=== PATIENT | male | born 1935 | race African-American/Black ===

== ENCOUNTER 2017-06-16 18:29 | Inpatient (IN) | payer OTHER ==
--- NOTE | 2017-06-16 19:13 | EDPHY ---
H & P Time Seen by Provider: 06/16/17 19:13 HPI/ROS: CHIEF COMPLAINT: Hip pain HISTORY OF PRESENT ILLNESS: The patient is an 82-year-old male with history of Parkinson's disease, who presents with increased weakness after a fall 3 days ago. The patient fell onto his buttocks when trying to walk without his walker. The patient has not been able to get up or roll over in bed since the fall. He told his his pain originates in the abdomen and radiates down to his legs. The patient has been lying in bed for the past 3 days. He usually ambulates with a walker and uses his wheelchair when he is more fatigued. The patient has had 5 falls since April. The patient recently had cold-like symptoms and has been more weak than usual. The patient has not been eating as much as usual. No vomiting or diarrhea. REVIEW OF SYSTEMS: A comprehensive 10 point review of systems is otherwise negative aside from elements mentioned in the history of present illness. 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 Smoking Status: Former smoker Physical Exam: General Appearance: Alert, pleasant, patient is diffusely weak, but able to move and stand up with assistance Eyes: Pupils equal and round, no conjunctival pallor ENT, Mouth: Mucous membranes moist Neck: Normal inspection Respiratory: Lungs are clear to auscultation Cardiovascular: Regular rate and rhythm Gastrointestinal: Abdomen is soft and non-tender Neurological: alert, motor-generalized weakness, gait not assessed Skin: Warm and dry, no rash Back: Normal inspection, no tenderness Extremities: Bilateral hip pain with hip extension, bilateral hip rotation without pain, bilateral knee range of motion without pain Psychiatric: Flat affect Constitutional: Initial Vital Signs Temperature (C) 37.0 C 06/16/17 18:33 Heart Rate 77 06/16/17 18:33 Respiratory Rate 16 06/16/17 18:33 Blood Pressure 124/107 H 06/16/17 18:33 O2 Sat (%) 93 06/16/17 18:33 O2 Delivery Mode Room Air Allergies/Adverse Reactions: No Known Allergies Allergy (Verified 01/27/13 17:25) Home Medications: Medication Instructions Recorded Acetaminophen [Tylenol ES 500 mg 1,000 mg PO HS 06/16/17 (*)] Albuterol Sulfate [Ventolin Hfa] 1 puffs IH BID 06/16/17 Carbidopa/Levodopa 25/100Mg 3 tab PO TID 06/16/17 [Sinemet 25/100 MG (*)] Fluticasone Hfa 110 Mcg [Flovent 1 puffs IH BID 06/16/17 110 MCG Hfa MDI (*)] Loratadine [Claritin 10 mg] 10 mg PO DAILY PRN 06/16/17 Timolol 0.25% [TIMOPTIC 0.25% (*)] 1 drops EACHEYE DAILY 06/16/17 Torsemide [Demadex] 10 mg PO DAILY 06/16/17 Medical Decision Making - Diagnostics Imaging: Discussed imaging studies w/ scow captain Radiologist, I viewed and interpreted images myself ED Course/Re-evaluation: The patient has a history of Parkinson's disease, dementia, and COPD. He presents to the emergency department with generalized weakness and multiple falls in the past 4-5 weeks. He is unable to localize the area of pain. In the emergency department he was able to stand up with assistance from his family. While standing he complains of pain in both of his hips. Passive hip ROM is not painful. I ordered x-ray imaging of the hips, knees, and lumbar spine. The patient has history of COPD with recent cough and chest cold, I ordered chest x-ray to rule out pneumonia. This is the patient's fifth fall since April. 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 Due to history of Parkinson's , dementia, and recent falls, I will admit the patient. Chest x-ray reveals no evidence of pneumonia. 2020: I spoke to the hospitalist, Dr. Mora, who accepts patient for admission. X-ray imaging by my read shows: Knee x-rays: right total knee replacement, no acute injury. Hip x-rays: DJD, negative for fracture. Chest x-ray: No pneumonia. Lumbar spine x-ray: DJD, no fracture. Please see imaging section for the full radiologist reports. Differential Diagnosis: Differential diagnosis includes though it is not limited to pneumonia, fracture , electrolyte abnormality, hypoglycemia, UTI. - Data Points Laboratory Results: Laboratory Results 06/16/17 19:55 06/16/17 19:55 Medications Given: Acetaminophen (Tylenol) 1,000 mg PO HS [facility]U Stop: 12/13/17 23:44 Last Admin: 06/17/17 21:01 Dose: 1,000 mg Aspirin (Aspirin) 325 mg PO DAILY [facility] Stop: 12/14/17 15:44 Last Admin: 06/18/17 09:43 Dose: 325 mg Enoxaparin Sodium (Lovenox) 40 mg SC DAILY [facility]U Stop: 12/14/17 08:59 Last Admin: 06/18/17 09:44 Dose: 40 mg Fluticasone Propionate (Flovent Hfa) 1 puffs IH BID [facility]U Stop: 12/14/17 08:59 Last Admin: 06/18/17 09:59 Dose: 1 puffs Lidocaine (Lidocaine 2% Jelly) 1 sydney TP ONCE PRN PRN Reason: debridement Stop: 12/15/17 08:59 Last Admin: 06/18/17 10:39 Dose: 1 sy[place]ney Timolol Maleate (Timoptic 0.25%) 1 drops EACHEYE DAILY [facility]U Stop: 12/14/17 08:59 Last Admin: 06/18/17 09:50 Dose: 1 drop Discontinued Medications Albuterol (Ventolin Hfa Inhaler) 1 puffs IH BID [facility]U Stop: 12/14/17 09:59 Last Admin: 06/17/17 10:05 Dose: 1 puffs Albuterol/Ipratropium (Duoneb) 3 ml IH QID [facility]U Stop: 12/14/17 11:59 Last Admin: 06/18/17 10:15 Dose: 3 ml Carbidopa/Levodopa (Sinemet) 3 tab PO TID [facility]U Stop: 12/14/17 08:59 Last Admin: 06/18/17 09:30 Dose: 3 tab Diltiazem HCl (Cardizem Immediate Release) 30 mg PO Q6HRS [facility] Stop: 12/14/17 15:44 Last Admin: 06/18/17 13:10 Dose: Not Given Sodium Chloride (Ns) 1,000 mls @ 75 mls/hr IV CONT RAMU Stop: 12/14/17 00:29 Last Admin: 06/17/17 14:56 Dose: 1,000 mls Departure - Departure Disposition: [facility] Acute Clinical Impression: Weakness, Multiple falls Failure to thrive Qualifiers: Failure to thrive age range: in adult Qualified Code(s): R62.7 - Adult failure to thrive Condition: Fair Report Scribed for: Medina Medel Report Scribed by: Yumiko Up Date of Report: 06/16/17 Time of Report: 19:15 Physician Review and Approval Statement: 06/16/17 19:15 Portions of this note were transcribed by a medical billing representative. I personally performed the history, physical exam, and medical decision-making; and confirmed the accuracy of the information in the transcribed note.
[2017-06-16 20:05] LABS: % IMMATURE GRANULYOCYTES 0.3 % (0.0-1.1); ABSOLUTE IMMATURE GRANULOCYTES 0.03 10^3/uL (0.00-0.10); ADD DIFF? NO; ADD MORPH? NO; ADD SCAN? NO; ATYPICAL LYMPHOCYTE FLAG 30 (0-99); FRAGMENT RBC FLAG 0 (0-99); HEMATOCRIT 45.9 % (40.0-51.0); HEMOGLOBIN 14.7 g/dL (13.7-17.5); LEFT SHIFT FLG 0 (0-99); LIPEMIA HEMOLYSIS FLAG 80 (0-99); MEAN CELL HEMOGLOBIN 29.2 pg (27.9-34.1); MEAN CELL VOLUME 91.1 fL (81.5-99.8); MEAN PLATELET VOLUME 12.9 fL (8.7-11.7); PLATELET CLUMPS FLAG 0 (0-99); PLATELET COUNT 232 10^3/uL (150-400); RED BLOOD CELL COUNT 5.04 10^6/uL (4.40-6.38)
[2017-06-16 20:15] LABS: ANION GAP 11 mEq/L (8-16); CALCIUM 9.1 mg/dL (8.5-10.4); CARBON DIOXIDE 22 mEq/l (22-31); CHLORIDE 110 mEq/L (97-110); CREATININE 0.8 mg/dL (0.7-1.3); GLOMERULAR FILTRATION RATE > 60; GLUCOSE 106 mg/dL (70-100); POTASSIUM 4.4 mEq/L (3.5-5.2); SODIUM 143 mEq/L (134-144)
[2017-06-16] MEDS: ACETAMINOPHEN 500 MG TAB PO SCH (23:49)
[2017-06-17] MEDS ORDERED: ACETAMINOPHEN 325 MG TAB PO PRN (00:19)
[2017-06-17] MEDS ORDERED: ONDANSETRON DISINTEGRATING 4 MG TAB PO PRN (00:19)
[2017-06-17] MEDS ORDERED: NS 1,000 ML IV SCH (00:30)
--- NOTE | 2017-06-17 01:40 | GHP ---
[f rep st] HISTORY AND PHYSICAL DATE OF ADMISSION: 06/16/2017 CHIEF COMPLAINT: Falls, unable to get out of bed. HISTORY OF PRESENT ILLNESS: This is an 82-year-old man with COPD and Parkinson's, who presents after a fall 3 days ago. Since then, he had been complaining about pain in his legs and abdomen. He has not really gotten out of bed since he fell 3 days ago. He has been drinking minimal water. He is no rmally on torsemide for what sounds like right-sided heart failure from his COPD; however, his h as been holding that. At baseline, he spends most of his time in bed. He sleeps about 18-20 hours a day, can walk very short distances with a walker. Otherwise, is in a wheelchair. He has [facility]. PAST MEDICAL/SURGICAL HISTORY: 1. Parkinson's. 2. Dementia. 3. COPD. 4. Questionable atrial fibrillation. 5. Pressure ulcer. 6. Right TKA. MEDICATIONS: Please see medication reconciliation. ALLERGIES: None. FAMILY HISTORY: Reviewed and noncontributory. SOCIAL HISTORY: He lives at home with his and has significant family support. REVIEW OF SYSTEMS: A 10-point review of systems is conducted and is negative, except per HPI. PHYSICAL EXAM: Blood pressure 110/92, heart rate 96, respiration rate 16, saturating 96% on room air , temperature is 37. In general, the patient is a pleasant man who is lying on bed. He appears comf ortable, in no acute distress. HEENT shows him to be normocephalic, atraumatic. Cardiovascular exam shows a regular rate and rhythm. He has distant S1 and S2. I do not appreciate any murmurs, rubs, or gallops. Pulmonary exam shows him also to have distant breath sounds. He is not in any respirato ry distress and he is otherwise clear. Abdominal exam is soft, nontender, nondistended. Skin exam s hows him to have decreased skin turgor. exam shows no Ferraro. Neurologic exam shows him to be dk ewhat confused. He has rigidity throughout. He has a mild resting tremor. Psychiatric exam shows n ormal mood and affect. LABS: Basic metabolic panel is normal. CBC is normal. DATA: 1. I discussed this with Dr. Mora. 2. I reviewed his chart. 3. I reviewed his hip, knee x-ray, lumbar spine x-ray. These are all negative for fractures. 4. I reviewed his chest x-ray. This shows some atelectasis and trace effusions. IMPRESSION AND PLAN: 1. Multiple recent falls: He has had about 5 since April. He is quite unstable, largely due to Pa zachinson's and deconditioning. We will have PT and OT see him, as well as Case Management. 2. Dehydration: Probably contributing to some of the worsening weakness since his fall 3 days ago. We will give him cautious hydration and hold his torsemide. Watch for edema. 3. Pressure ulcer on his sacrum: We will have a Wound Care consult. 4. Parkinson's: We will continue his Sinemet. 5. Chronic obstructive pulmonary disease: He is currently on room air. We will continue his inhale rs. CODE STATUS: He is do not resuscitate. VTE RISK: High. I will give him Lovenox. /[id number]/MODL
[2017-06-17 04:48] LABS: % IMMATURE GRANULYOCYTES 0.3 % (0.0-1.1); ABSOLUTE IMMATURE GRANULOCYTES 0.02 10^3/uL (0.00-0.10); ADD DIFF? NO; ADD MORPH? NO; ADD SCAN? NO; ATYPICAL LYMPHOCYTE FLAG 30 (0-99); FRAGMENT RBC FLAG 0 (0-99); HEMATOCRIT 42.3 % (40.0-51.0); HEMOGLOBIN 13.5 g/dL (13.7-17.5); LEFT SHIFT FLG 0 (0-99); LIPEMIA HEMOLYSIS FLAG 80 (0-99); MEAN CELL HEMOGLOBIN 29.3 pg (27.9-34.1); MEAN CELL HEMOGLOBIN CONCENTR. 31.9 g/dL (32.4-36.7); MEAN PLATELET VOLUME 12.9 fL (8.7-11.7); PLATELET CLUMPS FLAG 20 (0-99); PLATELET COUNT 203 10^3/uL (150-400); RED CELL DISTRIBUTION WIDTH 14.2 % (11.5-15.2)
[2017-06-17 04:54] LABS: INR 1.27 (0.83-1.16); PROTIME(PATIENT) 15.9 SEC (12.0-15.0)
[2017-06-17 05:00] LABS: ALANINE AMINOTRANSFERASE 33 IU/L (21-72); ALBUMIN 2.9 g/dL (3.5-5.0); ALKALINE PHOSPHATASE 104 IU/L (38-126); ANION GAP 9 mEq/L (8-16); ASPARTATE AMINOTRANSFERASE 76 IU/L (17-59); BILIRUBIN,TOTAL 0.6 mg/dL (0.1-1.4); BILIRUBIN-CONJUGATED 0.3 mg/dL (0.0-0.5); BILIRUBIN-UNCONJUGATED 0.3 mg/dL (0.0-1.1); CALCIUM 8.6 mg/dL (8.5-10.4); CARBON DIOXIDE 23 mEq/l (22-31); CHLORIDE 111 mEq/L (97-110); CREATININE 0.7 mg/dL (0.7-1.3); GLOMERULAR FILTRATION RATE > 60; GLUCOSE 85 mg/dL (70-100); MAGNESIUM 2.1 mg/dL (1.6-2.3); SODIUM 143 mEq/L (134-144)
[2017-06-17] MEDS ORDERED: TORSEMIDE 10 MG TAB PO SCH (09:00)
[2017-06-17] MEDS ORDERED: ALBUTEROL 200 PUFFS/18 GM MDI IH SCH (10:00)
[2017-06-17] MEDS: FLUTICASONE HFA 110 MCG MDI IH SCH ×2 (10:05→21:02)
[2017-06-17] MEDS: CARBIDOPA/LEVODOPA 25 MG/100 MG TAB PO SCH ×3 (10:30→18:38)
--- NOTE | 2017-06-17 11:52 | HOSPPROG ---
Hospitalist Progress Note Assessment/Plan: Increase falls in setting of Parkinson's - PT/OT evals. Cont sinemet. Neurology consult requested. Volume depletion - cont IVF's Tachycardia - ?h/o a fib, check EKG COPD - change to QID duonebs Pressure ulcer sacrum - wound care following, planning for debridement tomorrow -topical lidocaine prior to debridement DNR Dispo - cont inpt, family goals are to bring him home Objective: Vital Signs Temp Pulse Resp BP Pulse Ox 36.7 C 102 H 18 113/73 93 06/17/17 05:08 06/17/17 10:05 06/17/17 10:05 06/17/17 05:08 06/17/17 10:05 Laboratory Results 06/17/17 04:34 06/17/17 04:34 06/16/17 06/17/17 06/18/17 05:59 05:59 05:59 Intake Total 150 393 Balance 150 393 PT 15.9 SEC (12.0-15.0) H 06/17/17 04:34 INR 1.27 (0.83-1.16) H 06/17/17 04:34 ICD10 Worksheet Patient Problems: Problems Problem Status Onset Failure to thrive Acute Multiple falls Acute Weakness Acute
[2017-06-17] MEDS: IPRATROPIUM/ALBUTEROL 3 ML DEYVIAL IH SCH ×3 (12:00→21:01)
--- NOTE | 2017-06-17 12:54 | WOCRNPDOC ---
EDI Advanced Assessment Note - Skin Integrity Problem, Advanced Assess Right Sacrum Pressure Injury Dressing Type: Allevyn Life Dressing Description: Clean/Dry, Intact Exudate Amount: Minimal Exudate Color: Reddish/Yellow Exudate Characteristic(s): Serosanguinous Integumentary Issue Intervention: Dressing Changed, Hydrogel Applied Taryn Wound Tissue: Blanching, Erythema, Thin Wound Bed Color: Bracey, Yellow Wound Bed Constitution: Smooth Tissue (30%), Adhered Slough (70%) Site Measurement - Head-to-Toe Length X Width X Depth (cm): 1nlm4ekp9.3cm Pressure Injury Stage: Unstageable Pressure Injury Present on Admit: Yes Skin Integrity Problem Comment: Taryn wound skin is extensively scarred from multiple previous pressure injuries. The most medial portion of the wound is noted to have yellow adhered slough. The lateral portion of the wound is healing and currently partial thickness. Wound cleaned with NS and gauze. Wound gel applied to wound bed, taryn wound prepped with skin prep and Allevyn coccyx dressing applied. Findings and plan discussed with patient's and son who were both at the bedside. IZABEL Hunt also at bedside. Bilateral Heel Dressing Type: Open to Air Taryn Wound Tissue: Blanching, Xerotic Pressure Injury Present on Admit: No Skin Integrity Problem Comment: No pressure injury present. Will offload with boots to prevent further injury. Patient and family advised to offload bilateral heels and to moisturize BID. Se SMITH aware. Left Medial Buttock Pressure Injury Dressing Type: Allevyn Life Dressing Description: Clean/Dry, Intact Exudate Amount: None Integumentary Issue Intervention: Dressing Changed, Hydrogel Applied Taryn Wound Tissue: Blanching Wound Bed Color: Bracey Site Measurement - Head-to-Toe Length X Width X Depth (cm): 1.5cmx1.3cmx0.1cm Pressure Injury Stage: Stage 2 Pressure Injury Present on Admit: Yes Skin Integrity Problem Comment: This patient has a history of pressure injury in this same area. Skin is blanching and largely epithelialized but with small partial thickness opening. Wound cleaned with NS and gauze. Small amount of hydrogel applied to wound bed. Taryn wound skin prepped with skin prep and covered with Allevyn Life dressing. Patient and family educated to offload area to promote healing. Left Lateral Buttock Pressure Injury Dressing Type: Allevyn Life Dressing Description: Clean/Dry Exudate Amount: None Integumentary Issue Intervention: Dressing Changed, Hydrogel Applied Taryn Wound Tissue: Blanching Wound Bed Color: Bracey Site Measurement - Head-to-Toe Length X Width X Depth (cm): 3.2cmx2.2cmx0.1cm Pressure Injury Stage: Stage 2 Pressure Injury Present on Admit: Yes Skin Integrity Problem Comment: This patient has a history of pressure injury in this same area. Skin is blanching and largely epithelialized but with small partial thickness opening. Wound cleaned with NS and gauze. Small amount of hydrogel applied to wound bed. Taryn wound skin prepped with skin prep and covered with Allevyn Life dressing. Patient and family educated to offload area to promote healing.
--- NOTE | 2017-06-17 14:40 | CPEKG ---
Heart Rate: 144 RR Interval: 417 QRSD Interval: 78 QT Interval: 300 QTC Interval: 465 QRS Boswell: 91 T Wave Boswell: 93 EKG Severity - ABNORMAL ECG - EKG Impression: ATRIAL FIBRILLATION, V-RATE 95-181 EKG Impression: MULTIFORM VENTRICULAR PREMATURE COMPLEXES EKG Impression: RIGHT AXIS DEVIATION EKG Impression: NONSPECIFIC T ABNORMALITIES, LATERAL LEADS Electronically Signed By: Isabell Tovar 17-Jun-2017 16:30:47
[2017-06-17] MEDS: TIMOLOL 0.25% 5 ML OPHT.BTL EACHEYE SCH (14:50)
[2017-06-17] MEDS: ENOXAPARIN 40 MG/0.4 ML SYR SC SCH (15:03)
--- NOTE | 2017-06-17 16:01 | HOSPPROG ---
Hospitalist Progress Note Assessment/Plan: Increased falls in setting of Parkinson's - PT/OT evals. Cont sinemet. Neurology consult requested. A fib with RVR - pt has h/o of A fib, but not on AV danny blockers or anti- coagulation. Poor rate control here. Chads-vasc 2 based on age. May not be a good candidate for anti-coagulation given recurrent falls. -start po dilt -daily ASA for now -need to address anti-coagulation with family Volume depletion - cont IVF's for now COPD - Stable, no e/o acute exacerbation -change to QID duonebs Pressure ulcer sacrum - wound care following, planning for debridement tomorrow -topical lidocaine prior to debridement DNR Dispo - cont inpt, family goals are to bring him home. is primary decision maker. Subjective: Pt eating breakfast, not very communicative. Denies pain. No cough , CP or SOB. No fevers. Objective: Vital Signs Temp Pulse Resp BP Pulse Ox 36.4 C 121 H 18 105/75 92 06/17/17 13:53 06/17/17 13:53 06/17/17 13:53 06/17/17 13:53 06/17/17 13:53 Laboratory Results 06/17/17 04:34 06/17/17 04:34 06/16/17 06/17/17 06/18/17 05:59 05:59 05:59 Intake Total 150 393 Balance 150 393 PT 15.9 SEC (12.0-15.0) H 06/17/17 04:34 INR 1.27 (0.83-1.16) H 06/17/17 04:34 - Physical Exam Constitutional: no apparent distress Eyes: PERRL Ears, Nose, Mouth, Throat: moist mucous membranes Cardiovascular: irregularly irregular, tachycardia Respiratory: no respiratory distress, clear to auscultation Gastrointestinal: normoactive bowel sounds, soft, non-tender abdomen Skin: warm Musculoskeletal: other (LE rigidity) Psychiatric: other (masked facies) ICD10 Worksheet Patient Problems: Problems Problem Status Onset Failure to thrive Acute Multiple falls Acute Weakness Acute
[2017-06-17] MEDS: DILTIAZEM 30 MG TAB PO SCH ×3 (16:12→23:52)
[2017-06-17] MEDS: ASPIRIN 325 MG TAB PO SCH (16:30)
[2017-06-17] MEDS: ACETAMINOPHEN 500 MG TAB PO SCH (21:01)
[2017-06-18] MEDS: IPRATROPIUM/ALBUTEROL 3 ML DEYVIAL IH SCH ×2 (04:54→10:15)
[2017-06-18] MEDS: DILTIAZEM 30 MG TAB PO SCH ×2 (06:56→13:10)
[2017-06-18] MEDS ORDERED: LIDOCAINE 2% JELLY 5 ML TUBE TP PRN (09:00)
[2017-06-18] MEDS: CARBIDOPA/LEVODOPA 25 MG/100 MG TAB PO SCH ×2 (09:30→17:49)
[2017-06-18] MEDS: ASPIRIN 325 MG TAB PO SCH (09:43)
[2017-06-18] MEDS: ENOXAPARIN 40 MG/0.4 ML SYR SC SCH (09:44)
[2017-06-18] MEDS: TIMOLOL 0.25% 5 ML OPHT.BTL EACHEYE SCH (09:50)
[2017-06-18] MEDS: FLUTICASONE HFA 110 MCG MDI IH SCH ×2 (09:59→20:55)
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
--- NOTE | 2017-06-18 11:14 | WOCRNPDOC ---
WOCRN Advanced Assessment Note - Skin Integrity Problem, Advanced Assess Right Sacrum Pressure Injury Dressing Type: Allevyn Life Dressing Description: Clean/Dry, Intact Exudate Amount: Scant Exudate Characteristic(s): Serosanguinous Integumentary Issue Intervention: Dressing Changed Taryn Wound Tissue: Macerated, Scarred Taryn Wound Swelling: None Wound Bed Color: Red, Yellow Wound Bed Constitution: Granulation Tissue (10%), Adhered Slough (90%) Wound Edges: Not Attached, Scarred Pressure Injury Stage: Stage 3 Pressure Injury Present on Admit: Yes Conservative Sharp Bedside Debridement Performed: Yes Consent Signed for Debridement: Yes Timeout Performed per Protocol: Yes Instrument Used for Debridement: Currette Measurements Before Debridement: same as yesterday Measurements After Debridement: same as prior to debridement Estimated Blood Loss from Debridement: 0 Conservative Sharp Bedside Debridement Outcome: Down to Viable Tissue, Hemostasis Achieved Conservative Sharp Bedside Debridement Comment: Area premedicated with 2% lidocaine for 5 min. 20% thin layer of slough remaining post debridement. Patient's son and were both in room for care.
[2017-06-18] MEDS ORDERED: IPRATROPIUM/ALBUTEROL 3 ML DEYVIAL IH PRN (11:39)
--- NOTE | 2017-06-18 11:44 | HOSPPROG ---
Hospitalist Progress Note Assessment/Plan: * Acute weakness - per family was ambulatory 1 week ago -PT/OT -full medical eval to see if cause of acute decline can be found -may have been recent viral illnes which precipitated fall * End stage Parkinson's -neurology recommends hospice care -they are not convinced he will not recover given rapidity of decline -they wish to continue Sinemet at this time -check swallow eval * Rapid afib -rate control better on PO diltiazem -ASA for CVA prevention given history of falls -family requests cardiology consultation * Metabolic encephalopathy - w/u as above * Dementia - advanced * Sacral decub - POA -wound care * COPD with right heart failure -holding torsemide due to poor PO Will consult palliative care to assist with this difficult case Refusing SNF - they plan to take him home with increased assistance to from son/dtr in law Son is planning on selling his home and moving in with them so he will be more present They plan to private pay PT/OT for increase chances of success at rehab Subjective: No change since admission Objective: Vital Signs Temp Pulse Resp BP Pulse Ox 36.7 C 99 17 112/78 92 06/18/17 09:00 06/18/17 09:00 06/18/17 09:00 06/18/17 09:00 06/18/17 09:00 Laboratory Results 06/17/17 04:34 06/17/17 04:34 06/17/17 06/18/17 06/19/17 05:59 05:59 05:59 Intake Total 150 1543 400 Output Total 75 Balance 150 1543 325 PT 15.9 SEC (12.0-15.0) H 06/17/17 04:34 INR 1.27 (0.83-1.16) H 06/17/17 04:34 d/w Tiff Sahu regarding cardiology consultation EKG viewed, my personal interpretation is - rapid afib CXR - possible increased CHF - Physical Exam Constitutional: no apparent distress, appears nourished, not in pain Cardiovascular: no murmur, rub, or gallop, irregularly irregular, No JVD, No edema Respiratory: no respiratory distress, no rales or rhonchi, clear to auscultation Gastrointestinal: normoactive bowel sounds, soft, non-tender abdomen, no palpable masses Skin: no rashes or abrasions, no fluctuance, no induration Neurologic: No AAOx3 Psychiatric: encephalopathic, poor insight, poor judgement, poor memory, No interacting appropriately ICD10 Worksheet Patient Problems: Problems Problem Status Onset Failure to thrive Acute Multiple falls Acute Weakness Acute
--- NOTE | 2017-06-18 15:28 | PDPCPN ---
Palliative Care Progress Note Assessment/Plan: Referring provider: Dr Colon Reason for consult: Complex medical decision making Symptom control HPI: Jluis Etienne is a 82 yo male with Parkinson, COPD, a fib, pressure ulcers, and dementia admitted to the hospital after a fall with poor po intake and increase in weakness. Treated with IV fluids and work up for acute issues negative so far. Hospitalization complicated by a fib. Improvement in functional status from baseline and was up able to walk with x2 person assist and walker today. Appetite is better. Palliative care consulted for complex medical decision making. Met with Celestina and son Cecil at the bedside this afternoon. Well known to me from outpatient visits. Jluis has been declining over the past 18 months and is mostly home bound except for occasional medical visits. He has been declining physically as well as mentally. He was dx with parkinson's about 1 year ago and had slight improvement in function just afterwards. Per outpt chart review in February he was essentially wheelchair bound with decreasing appetite and increase in falls. He has had HHC in the past with complications of care due to his dementia and not wanting anyone but his to assist him. Per the family he is about 40% back to his most recent baseline. We spoke about how he will likely continue to have declines in baseline functional status due to his multiple chronic medical conditions. Celestina would like more support at home as it has been getting harder for him to transfer and go to appointments outside of the home. His son who lives close by is going to be moving in with his parents to provide additional support and care. His family believes Jluis is not ready for hospice care and believes he has years left to live. We discussed the difference of hospice vs palliative care and when hospice may be appropriate. Celestina understands the continue decline and will have to assess for his recovery and ongoing care in the future. Assessment: Physical: - Pain: none, monitor after fall -tylenol PRN - weakness: -PT/OT - turn and reposition Emotional/psychological: Confusion: at times - maintain normal routine Advanced Care Planning: Is patient decisional?: no Code Status: DNR POA: Celestina is MDPOA. Plan: Home when medically ready with HHC (rn, PT, OT) and [facility] outpt palliative care. Subjective: when can i leave Objective: Social History: to [place]. 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 1 son local and involved. Medication list reviewed ROS: General: fatigue, weakness, weight loss ENT: negative Resp: negative GI: negative : negative MS: negative Skin: sacral ulcer Neuro: negative Psych: hallucinations Functional assessment: PPS: 40% Functional status: dependent on ADLs, IADLs Vital Signs Temp Pulse Resp BP Pulse Ox 36.4 C 88 15 90/61 L 95 06/18/17 12:09 06/18/17 12:09 06/18/17 12:09 06/18/17 12:09 06/18/17 12:09 Laboratory Results 06/17/17 04:34 06/17/17 04:34 06/17/17 06/18/17 06/19/17 05:59 05:59 05:59 Intake Total 150 1543 400 Output Total 75 Balance 150 1543 325 PT 15.9 SEC (12.0-15.0) H 06/17/17 04:34 INR 1.27 (0.83-1.16) H 06/17/17 04:34 Physical Exam - Physical Exam General Appearance: alert, no apparent distress Respiratory: No respiratory distress, No accessory muscle use Skin: normal color, warm/dry Extremities: pedal edema (trace) Neuro/Psych: alert, disoriented to place, disoriented to time ICD10 Worksheet Patient Problems: Problems Problem Status Onset Failure to thrive Acute Multiple falls Acute Palliative care encounter Acute Weakness Acute - ICD10 Problem Qualifiers (1) Palliative care encounter
--- NOTE | 2017-06-18 16:07 | ASMTCMCOM ---
CM Note CM Note Notes: Pt admitted for Parkinson's and multiple falls in the home. Pt had a palliative care consult and decision made to have [facility] in the home. 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 Met with pt's who chose [facility]. [facility] alerted. C/M to follow. Date Signed: 06/18/2017 04:07 PM Electronically Signed By:Phyllis Arias LCSW
--- NOTE | 2017-06-18 16:19 | GCON ---
[f rep st] CONSULTATION CARDIOLOGY CONSULTATION CHIEF COMPLAINT: Poor eating and not having taken in many fluids, and having had a fall before he came to the hospital. He has a history of taking strong diuretics and his says that he is in bed most of the day, sleeping 18-20 hours a day. Does not go very far with his walker. He is being seen by Wound Care. He has a dementia from Parkinson disease. He has COPD. He has a history of pressure ulcers. He is a very pleasant gentleman who has no chest pain, jaw pain, or arm pain. He does not complain of shortness of breath. He is not having palpitations. CARDIAC RISK FACTORS: Negative for hypertension, hyperlipidemia, diabetes mellitus, known myocardial infarction or coronary disease. He does not smoke. He does not have hyperuricemia. ALLERGIES: None. FAMILY HISTORY: Negative for premature coronary disease. SOCIAL HISTORY: He was born in [place], [place]. At 16 years old he left [place] and went to [place] [employer], was there for 2 years, and then went to work for [employer]. 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 In 1951, he came to [place], [place] and has been here ever since. He did meet his in [place] when he was working at the [employer] for [employer], and she was working for the [employer]. She and he are both retired at this point in time. He does not smoke. He does not drink significant amounts of alcohol. REVIEW OF SYSTEMS: A 12-point review of systems was negative except as noted above and in the record. Positive for Parkinson's. Positive for dementia. Positive for weakness. Positive for a right TKA. PHYSICAL EXAM: VITAL SIGNS: Today, the blood pressure is 105/70, heart rate is 85 and irregular, respiratory rate 12, temperature afebrile. NECK: Supple. CARDIOVASCULAR: S1 and S2. Systolic murmur at the left sternal border. An irregularly irregular heartbeat. PULMONARY: Decreased breath sounds at the bases. ABDOMEN: Soft, nontender, without masses. EXTREMITIES: Without edema. NEUROLOGIC: He is confused and not answering appropriately. ASSESSMENT AND PLAN: 1. Atrial fibrillation. 2. Multiple falls. 3. Trauma. 4. Parkinson disease. 5. Weakness. 6. Dementia. 7. Chronic obstructive pulmonary disease. He has been seen by the wound care service on a regular basis while he has been here. His chest x-ray showed bibasilar atelectasis and trace bilateral pleural effusions. No discernible rib fracture or acute compression abnormality. He is being followed by the neurology service and the hospitalist. The patient is seen by the neurologic service for his Parkinson disease. Atrial fibrillation. At this point in time, the patient is not a good candidate for full anticoagulation. He is falling. He is totally unsteady. He is unreliable, and I do not think full anticoagulation would be appropriate for him. I would give him aspirin 81 mg a day to help cut down somewhat on the risk of stroke with his atrial fibrillation. He is being followed by Dr. Kim , and they are very attached to this physician general practice. For now, I would continue his current medications and watch and see how he does. He came in dehydrated from not eating much and from his trauma, and having little interest in food or liquid. I have talked to his family about staying hydrated extensively, and discussed what that means and the options for them. I spent over an hour with the family on long-term care options, on end of life care options, and going over their questions. They would like very much to follow with Dr. Kim, and we will make that possible for them to do. I talked to the hospitalist about this, and will just continue with the current medications which she has picked, which are doing a very good job for him. His heart rate is coming down, and he is very much at baseline, and I do not think we need to do a new big workup on his care. Thank you very much for asking us to see him. /[id number]/MODL MTDD
[2017-06-18] MEDS ORDERED: DILTIAZEM 30 MG TAB PO ONE (18:30)
[2017-06-18] MEDS: DILTIAZEM CD 120 MG CAP PO SCH (18:41)
[2017-06-18] MEDS: ACETAMINOPHEN 500 MG TAB PO SCH (20:22)
[2017-06-18] MEDS ORDERED: CETIRIZINE 10 MG TAB PO PRN (23:58)
[2017-06-19 05:44] LABS: % IMMATURE GRANULYOCYTES 0.5 % (0.0-1.1); ABSOLUTE IMMATURE GRANULOCYTES 0.03 10^3/uL (0.00-0.10); ADD DIFF? NO; ADD MORPH? NO; ADD SCAN? NO; ATYPICAL LYMPHOCYTE FLAG 40 (0-99); FRAGMENT RBC FLAG 0 (0-99); HEMATOCRIT 42.2 % (40.0-51.0); HEMOGLOBIN 13.2 g/dL (13.7-17.5); LEFT SHIFT FLG 0 (0-99); LIPEMIA HEMOLYSIS FLAG 80 (0-99); MEAN CELL HEMOGLOBIN 29.2 pg (27.9-34.1); MEAN CELL HEMOGLOBIN CONCENTR. 31.3 g/dL (32.4-36.7); MEAN CELL VOLUME 93.4 fL (81.5-99.8); MEAN PLATELET VOLUME 13.2 fL (8.7-11.7); PLATELET CLUMPS FLAG 10 (0-99); PLATELET COUNT 177 10^3/uL (150-400); RED BLOOD CELL COUNT 4.52 10^6/uL (4.40-6.38); RED CELL DISTRIBUTION WIDTH 14.3 % (11.5-15.2)
[2017-06-19 05:58] LABS: ANION GAP 8 mEq/L (8-16); CALCIUM 8.8 mg/dL (8.5-10.4); CARBON DIOXIDE 23 mEq/l (22-31); CHLORIDE 108 mEq/L (97-110); CREATININE 0.7 mg/dL (0.7-1.3); GLOMERULAR FILTRATION RATE > 60; GLUCOSE 84 mg/dL (70-100); POTASSIUM 3.9 mEq/L (3.5-5.2); SODIUM 139 mEq/L (134-144)
[2017-06-19] MEDS: ASPIRIN 325 MG TAB PO SCH (10:11)
[2017-06-19] MEDS: DILTIAZEM CD 120 MG CAP PO SCH (10:11)
[2017-06-19] MEDS: CARBIDOPA/LEVODOPA 25 MG/100 MG TAB PO SCH ×2 (10:11→16:54)
[2017-06-19] MEDS: ENOXAPARIN 40 MG/0.4 ML SYR SC SCH (10:12)
[2017-06-19] MEDS: FLUTICASONE HFA 110 MCG MDI IH SCH (10:13)
--- NOTE | 2017-06-19 11:18 | PDIAF ---
- Diagnosis Diagnosis: FTT, Frequent Falls, Parkinsons. will have Palliative Care at home Code Status: Do Not Resuscitate - Medication Management Discharge Medications: Medications to Continue on Transfer Acetaminophen [Tylenol ES 500 mg (*)] 1,000 mg PO HS 06/16/17 [Last Taken ] Albuterol Sulfate [Ventolin Hfa] 1 puffs IH BID 06/16/17 [Last Taken Unknown] Carbidopa/Levodopa 25/100Mg [Sinemet 25/100 MG (*)] 3 tab PO TID 06/16/17 [Last Taken 06/16/17] Fluticasone Hfa 110 Mcg [Flovent 110 MCG Hfa MDI (*)] 1 puffs IH BID 06/16/17 [ Last Taken 06/13/17] Loratadine [Claritin 10 mg] 10 mg PO DAILY PRN 06/16/17 [Last Taken Unknown] Timolol 0.25% [TIMOPTIC 0.25% (*)] 1 drops EACHEYE DAILY 06/16/17 [Last Taken ] Torsemide [Demadex] 10 mg PO DAILY 06/16/17 [Last Taken 06/13/17] Discharge Medications: Refer to the Discharge Home Medication list for PRN reason. - Orders Services needed: Home Care, Registered Nurse, Physical Therapy, Occupational Therapy Home Care Face to Face: I certify that this patient was under my care and that I had the required [id number] encounter meeting the encounter requirements on the discharge day. My findings support the fact that the patient is homebound as defined in Home Care Face to Face Continued: CMS Chapter 7 Medicare Benefits Manual 30.1.1 , The condition of the patient is such that there exists a normal inability to leave home and consequently, leaving home would require a considerable and taxing effort. - Follow Up Care Current Providers and Referrals: Lakisha Stanley MD [Primary Care Provider] - As per Instructions
--- NOTE | 2017-06-19 11:23 | PDDCSUM ---
Discharge Summary Discharge Summary: 82 yo male admitted for frequent falls and overall decline, FTT, Hx of advanced Parkinsons. Neurology and Palliative Care consulted. No acute reversibility. Worked with PT/OT. Per Palliative Care meeting, decision to discharge to home with [facility] (RN, PT/OT) and home Palliative care. Hospitalization complicated by rapid afib and rate controlled with Diltiazem. No AC started due to fall risk. Now on low dose Aspirin. The pt's is requesting discharge. All questions answered DDX: * Acute weakness - No acute reversible pathology * End stage Parkinson's -continue Sinemet * Rapid afib -rate control better on PO diltiazem -ASA for CVA prevention given history of falls -Cards consulted. No further intervention. No AC due to fall risk * Metabolic encephalopathy - improved. Now near baseline * Dementia - advanced * Sacral decub - POA -wound care * COPD with right heart failure -holding torsemide due to poor PO. May need torsemide/diuretics in the future. D/C Meds: see med rec. Torsemide is being held PE: Chronicall ill appearing Irr/Irr CTAB s/nt/nt no edema somewhat confused ( says this is baseline) Total time spent on discharge is 35 minutes
--- NOTE | 2017-06-19 12:33 | ASMTCMCOM ---
CM Note CM Note Notes: Pt will benefit from hospital bed at DC. Faxed referral to [facility] ([phone], F). Depending on results of video swallow eval this afternoon, pt will DC today or tomorrow. Plan is for pt to DC with [facility] RN/PT/OT/ST/BICYCLE I ASSEMBLER. Pt will also have [facility] for palliative. Alerted both to DC and faxed final orders Date Signed: 06/19/2017 12:32 PM Electronically Signed By:Phyllis Arias LCSW
[2017-06-19 12:58] VITALS: TEMP 97.5
--- NOTE | 2017-06-19 14:39 | SOAPPROG ---
SOAP Progress Note Assessment/Plan: Assessment: 1. Atrial fibrillation 2. Dehydration 3. COPD 4. Dimension 5. Multiple falls 6. Bed ridden. He is at this point often spending 20 hours a day in bed. He barely gets up. This what he wants to do. Have talked to his about this. Since he is in bed so much not sure he could benefit from rehab. Talked to the son and the for over 40 minutes yesterday about different options of care levels of care. Spoke with the patient at the same time about all those different possibilities. Right now he does not want to do anything different when I talked to him. He is going to talk to his son when he comes in later and his is here with him now. I have answered all her questions. He has getting a slower heart rate with diltiazem and is willing to go home on that. He has been on torsemide and his is already cut his dose in half but he still got significantly dehydrated. We will do is have him take the torsemide at a lower dose that was originally prescribed and to use it only when he has gained 3-5 lb or he starts having more shortness of breath or has other significant complaints. He is going to will get an appointment in our office very soon and will go over these instructions once again for his p.r.n. diuretic. He really is not moving much. He is very deconditioned. He when he does get up he often falls and therefore even though he has a high chads Vasc score he is not on full anticoagulation he is instead on aspirin daily. His family understands the benefits of full anticoagulation but are very concerned about his falls and bleeding too much so they are happy to limit his anticoagulation to aspirin. Believe this is very appropriate choice given his condition. I did talk to the son yesterday and their plan is to continue as comfort measures only. We have reviewed this extensively. I have answered all their questions. They will have follow-up with her own hand salter Dr. Fausto Kim Plan: 06/19/17 14:45 Subjective: He has no chest pain He has not had shortness of breath. He is not having new complaints. He is not having palpitations. He was lying in bed when I came to see him this morning. He is very comfortable. He is not having nausea or vomiting. He is taking his medications and doing well. Objective: Vital Signs Temp Pulse Resp BP Pulse Ox 36.4 C 110 H 15 94/70 L 93 06/19/17 12:55 06/19/17 12:55 06/19/17 12:55 06/19/17 12:55 06/19/17 12:55 Laboratory Results 06/19/17 05:22 06/19/17 05:22 06/18/17 06/19/17 06/20/17 05:59 05:59 05:59 Intake Total 1543 1130 Output Total 75 Balance 1543 1055 PT 15.9 SEC (12.0-15.0) H 06/17/17 04:34 INR 1.27 (0.83-1.16) H 06/17/17 04:34 Physical Exam - Physical Exam General Appearance: No no apparent distress Respiratory: decreased breath sounds, rhonchi Cardiac/Chest: systolic murmur, irregularly irregular Abdomen: non-tender, soft, No organomegaly Skin: warm/dry Extremities: No calf tenderness Neuro/Psych: normal mood/affect ICD10 Worksheet Patient Problems: Problems Problem Status Onset Failure to thrive Acute Multiple falls Acute Palliative care encounter Acute Weakness Acute
[2017-06-19 16:52] VITALS: BP 105/71; PULSE 119; RESP 18; O2SAT 95
[2017-06-19] MEDS: TIMOLOL 0.25% 5 ML OPHT.BTL EACHEYE SCH (17:07)
--- NOTE | 2017-06-19 17:17 | ASDISCHSUM ---
Discharge Information Plan Status:Home with Home Health Medically Cleared to Leave: Discharge Date: D/C Disposition: [facility] D/C Disposition:Home Health Service Projected Discharge Date:06/19/2017 06:00 PM Transportation at D/C: Discharge Delay Reason: Follow-Up Date:06/19/2017 06:00 PM Discharge Slot: Final Diagnosis: Placement Information Referral Type:*Hospice Referral ID:[id number] Provider Name:[facility] Address 1:[address] [place] Address 2: City:[place] Selection Factors: State:[place] Referral Type:*Home Health Care Services Referral ID:[id number] Provider Name:[facility] Address [address] [place] [address] Address 2: City:[place] Selection Factors: State:[place] Patient Contact Information Contact Name:NONA Relationship: Address: [address] City:[place] Alternate Phone: State/Zip Code:[place] [phone] Email: Financial Information Financial Class:Medicare Advantage Plans Primary Plan Desc:[facility] MEDICARE Primary Plan Number:[id number] Secondary Plan Desc: Secondary Plan Number: Assessment Information [facility] CM Progress Note CM Note CM Note Notes: Pt admitted for Parkinson's and multiple falls in the home. Pt had a palliative care consult and decision made to have [facility] in the home. 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 Met with pt's who chose [facility]. [facility] alerted. C/M to follow. Date Signed: 06/18/2017 04:07 PM Electronically Signed By:Phyllis Arias LCSW [facility] CM Progress Note CM Note CM Note Notes: Pt will benefit from hospital bed at DC. Faxed referral to [facility] ([phone], F). Depending on results of video swallow eval this afternoon, pt will DC today or tomorrow. Plan is for pt to DC with [facility] RN/PT/OT/ST/[facility]. Pt will also have [facility] for palliative. Alerted both to DC and faxed final orders Date Signed: 06/19/2017 12:32 PM Electronically Signed By:Phyllis Arias LCSW [facility] CM Progress Note CM Note CM Note Notes: Pt ready for DC today. Pt's son and would like a low air-loss mattress for the hospital bed as well as a wheelchair. Will fax order for this equipment tomorrow AM. Date Signed: 06/19/2017 05:15 PM Electronically Signed By:Phyllis Arias LCSW Intervention Information
== END 2017-06-19 18:09 | disposition home health service (06) | DRG 56 ==
LOC: F1N 21:39
PROVIDERS: ADMIT Internal Medicine; ATTEND Student in an Organized Health Care Education/Training Program
DX: G31.83 Neurocognitive disorder with Lewy bodies (principal); L89.153 Pressure ulcer of sacral region, stage 3; G93.41 Metabolic encephalopathy; L89.322 Pressure ulcer of left buttock, stage 2; R29.6 Repeated falls; F02.80 Dementia in other diseases classified elsewhere, unspecified severity, without behavioral disturbance, psychotic disturbance, mood disturbance, and anxiety; J44.9 Chronic obstructive pulmonary disease, unspecified; I50.9 Heart failure, unspecified; I48.91 Unspecified atrial fibrillation; R62.7 Adult failure to thrive; E86.0 Dehydration; Z66 Do not resuscitate; Z96.651 Presence of right artificial knee joint
CPT/HCPCS: 92526-GN; 92610-GN; 92611-GN; 97116-GP; 97162-GP; 97167-GO; 97535-GO; G8978-GP-CL; G8979-GP-CJ; G8987-GO-CM; G8988-GO-CK; G8996-GN-CJ; G8996-GN-CK; G8997-GN-CH; G8997-GN-CI; J1650